=== PATIENT | female | born 1945 | race Caucasian/White ===

== ENCOUNTER 2021-06-30 18:32 | Observation (INO) | payer OTHER ==
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
[2021-06-30] MEDS ORDERED: CEFTRIAXONE 1,000 MG in NA CHLORIDE 0.9% 50 ML IVPB SCH (21:00)
--- NOTE | 2021-06-30 21:29 | RAD REPORT ---
EXAM DESCRIPTION: Franc Cleaning (2 Views)06/30/2021 9:23 pm CLINICAL HISTORY: fever COMPARISON: 2018 FINDINGS: The lungs appear clear of acute infiltrate. The heart is normal size IMPRESSION: No acute abnormalities displayed
[2021-06-30 22:02] LABS: Absolute Lymphocytes (CBC) 0.4 K/uL (0.7-4.9); Hematocrit 40.1 % (36.0-45.0); Lymphocytes % 6.7 % (15.3-44.8); MPV 8.8 fL (7.6-11.3); RBC Red Blood Cell Count 4.69 M/uL (3.86-4.86)
[2021-06-30 22:24] LABS: Albumin 3.8 g/dL (3.4-5.0); Bilirubin Total 0.6 mg/dL (0.2-1.0); Magnesium 2.1 mg/dL (1.8-2.4); Potassium 3.4 mmol/L (3.5-5.1)
[2021-06-30 23:28] LABS: Blood Morphology Comment NOT SEEN (NOT SEEN); Platelet Estimate ADEQ
[2021-06-30 23:36] LABS: Urine Appearance Clear (Clear); Urine Bilirubin Negative (Negative); Urine Blood Negative (Negative); Urine Color Yellow (Yellow); Urine Glucose Negative (Negative); Urine Protein Negative (Negative); Urine Specific Gravity <=1.005 (1.005-1.030); Urine Urobilinogen 0.2 mg/dL (0.2-1.0); Urine pH 5.5 (5.0-7.0)
[2021-06-30 23:43] LABS: Urine Microscopic Reflex ORDER UMIC
[2021-07-01 00:09] LABS: Urine Bacteria <20 /HPF (<20); Urine RBC <5 /HPF (NONE SEEN); Urine Urothelial Cells <5 /HPF (NONE SEEN)
[2021-07-01] MEDS: NA CHLORIDE 0.9% 1,000 ML IV SCH ×2 (02:30→06:19)
[2021-07-01 05:58] VITALS: BMI 33.3
[2021-07-01] MEDS ORDERED: carvediloL 3.125 MG TAB PO SCH (06:00)
[2021-07-01] MEDS ORDERED: POTASSIUM CL SA 10 MEQ TAB PO ONE (07:16)
--- NOTE | 2021-07-01 07:36 | HP ---
Date of Admission: 06/30/2021 Chief Complaint: Fever and feeling weak. History Of Present Illness: Ms. Coats is a pleasant 76-year-old female patient, who worked outside in this hot weather for approximately hour or so and she came back inside the house and reported that she was not feeling good after that. She started to have fever, chills, body ache. Her maximum tem perature at home was 102 degrees Fahrenheit. She took 2 different doses of Tylenol 500 mg about 4 ho urs apart. Has felt very tired and weak today and has not had a good appetite today. Denies any cou gh, chest congestion, sore throat. Has had some nausea, but no vomiting. She did home COVID test to day, which was negative and then subsequently called office, requested appointment and was seen today at the office and after I evaluated her, decision was made to admit her to the hospital. She denies any diarrhea or constipation. No urinary complaints. Allergies: TO CLINDAMYCIN CAUSING RASH. Medications: Carvedilol 3.125 mg 2 times a day, dicyclomine 20 mg as needed, hydroxychloroquine 200 mg 2 times a day, levothyroxine 200 mcg daily, Xiidra, Apriso, omeprazole 40 mg daily, pramipexole 0. 5 mg 3 times a day, and rosuvastatin 5 mg daily. Review of Systems: Constitutional: As mentioned above. GI: As mentioned above. All other systems reviewed and negative. Past Medical History: Significant for restless leg syndrome, hypertension, hypothyroidism, impaired fasting glucose, hyperlipidemia, aortic regurgitation, gastroesophageal reflux disease, diverticulosi s, depression. Past Surgical History: Significant for tonsillectomy, thyroidectomy, hysterectomy, carpal tunnel jasson susie, and knee surgery. 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 Family History: Significant for father had some type of skin cancer and kidney disorder. Mother had diabetes and hepatitis C and sister had lung cancer. Social History: Negative for smoking. Use of alcohol occasionally. Immunization History: Her COVID-19 vaccine was on March 31, 2020 and April 28, 2020, and this was Patti starks, and her first booster was January 01, 2021, and it was [employer]. Physical Examination: vital Signs: When I saw her; manual blood pressure 108/70, pulse 96, temperature 99.2, respiratory r ate 18. Weight 200.2 pounds, height 65 inches. General: The patient appears weaker than normal. Appears very tired, not in any distress. Awake, a lert, answering questions appropriately. HEENT: Head atraumatic, normocephalic. Conjunctivae nonerythematous. Sclerae white. Mouth, no thr ush or edema noted. Ears/Nose, no mass, lesion, discharge noted. Neck: Supple. No JVD, lymph nodes, bruit, thyromegaly noted. Lungs: Bilateral good equal air entry. Clear to auscultation. No rhonchi. No rales. Heart: Normal heart sounds, no murmur or gallop. Abdomen: Soft, bowel sounds normal. No guarding, rigidity, tenderness, mass, hepatosplenomegaly, dis tention, or bruit noted. Extremities: No leg edema. No calf tenderness. Skin: No rash, ulcer, cellulitis. Lymphatics: No lymph node enlargement in neck, supraclavicular, infraclavicular region. Neuro: No focal neurological deficit. Chest: Unremarkable. External Genitalia: Deferred. Rectal: Deferred. Laboratory Data: COVID-19 test negative. Chest x-ray; no acute cardiopulmonary changes. Urinalysis ; 1+ leukocyte esterase, 5-10 WBC. White count 5.5, hemoglobin 13.7, platelets 152. Sodium 139, pot assium 3.4, chloride 103, bicarb 28, BUN 19, creatinine 0.84, glucose 95. Liver function tests unrem arkable except AST 47. Lactic acid 0.8. Procalcitonin 0.38. Impression: 1.Fever. 2.Volume depletion. 3.Hypokalemia. 4.Urinary tract infection. 5.Rule out sepsis. 6.Hypertension. 7.Hyperlipidemia. 8.Restless leg syndrome. 9.Hypothyroidism, postsurgical. 10.Gastroesophageal reflux disease. 11.Diverticulosis. 12.Depression. 13.Impaired fasting glucose. Plan: Admit the patient to hospital for further evaluation and management of this problem. The [facility] is appropriate for inpatient and is expected to spend 2 midnights in hospital. We will go ahead and get urine culture and blood culture done after sample is collected. We will start the patient on ceftriaxone 1 g IV every 12 hours. IV fluid will be given per order. We will continue home medicat ions per order and I will see her tomorrow morning for followup. We will give DVT prophylaxis using Lovenox as per order. Details and plan of treatment discussed with the patient and the patient's hus band who was with her at office. KALYN/YESSY Voice ID: [id number]
[2021-07-01 08:35] VITALS: BP 139/75; TEMP 98
[2021-07-01] MEDS ORDERED: ENOXAPARIN 40 MG/0.4 ML SQ SCH (09:00)
--- NOTE | 2021-07-02 23:19 | DS ---
Date of Discharge: 07/01/2021 Disposition: Discharged to go home. Physical Examination: HEENT: Unremarkable. Lungs: Clear to auscultation. Heart: Heart sounds normal. Abdomen: Soft, bowel sounds normal. No guarding, rigidity, tenderness, or distention. Extremities: No leg edema. Discharge Medications And Instructions: 1.Continue all prior home medications. 2.Cipro 500 mg 2 times a day for 1 week. 3.Follow up at my office next week on Monday, which is 07/07/2021, call office for appointment. 4.Keep yourself well hydrated. 5.Avoid excessive heat exposure. Final Diagnoses: 1.Fever. 2.Volume depletion. 3.Urinary tract infection. 4.Hypertension. 5.Hyperlipidemia. 6.Restless legs syndrome. 7.Hypokalemia. 8.Heat exhaustion. Hospital Course: A 76-year-old pleasant female patient who came into office yesterday. After workin g in the yard, she started to have fever, chills, feeling very weak, loss of appetite, feeling very t ired and she came into office. After she was evaluated, she was admitted to the hospital. At office , her blood pressure was on low side. She was started on IV fluid. Blood culture, urine culture was done. Urinalysis was done and she was started on empiric antibiotic, ceftriaxone. This morning whe n I saw her, she was feeling much better. She was looking a lot better. No new complaints or proble ms reported overnight and the patient was discharged to go home in stable condition. Urine culture a nd blood culture results are pending. I will follow up on those on outpatient basis and if we need t o change any antibiotic, we will consider to do so. All those details were discussed with the patien t. The patient was advised not to have any kind of excessive sunlight exposure, to avoid any possibi lity of heat exhaustion. It is possible that yesterday's presentation was combination of heat exhaus tion as well as urinary tract infection. In any case, I have strongly encouraged her to keep her so well hydrated and avoid yard work or excessive sunlight exposure. KALYN/MODL Voice ID: [id number] Report ID: [id number]
== END 2021-07-01 08:30 | disposition home or self-care (01) ==
LOC: ERHOLD 18:32 → INTOOBSV 18:32 → 2ND 19:48
PROVIDERS: ADMIT Internal Medicine; ATTEND Internal Medicine
DX: N39.0 Urinary tract infection, site not specified (principal); E86.9 Volume depletion, unspecified; T67.5XXA Heat exhaustion, unspecified, initial encounter; I10 Essential (primary) hypertension; E78.5 Hyperlipidemia, unspecified; G25.81 Restless legs syndrome; E87.6 Hypokalemia; R73.01 Impaired fasting glucose; E89.0 Postprocedural hypothyroidism; K21.9 Gastro-esophageal reflux disease without esophagitis; K57.90 Diverticulosis of intestine, part unspecified, without perforation or abscess without bleeding; F32.A Depression, unspecified; I35.1 Nonrheumatic aortic (valve) insufficiency; Z20.822 Contact with and (suspected) exposure to COVID-19; Z79.899 Other long term (current) drug therapy; Z88.1 Allergy status to other antibiotic agents; Z85.820 Personal history of malignant melanoma of skin; Z90.710 Acquired absence of both cervix and uterus; Z83.3 Family history of diabetes mellitus; Z80.1 Family history of malignant neoplasm of trachea, bronchus and lung; Z80.8 Family history of malignant neoplasm of other organs or systems; Z84.1 Family history of disorders of kidney and ureter
CPT/HCPCS: 87040 ×2; 87088; 85025; 87086; 36415; 83735; 82947; 83605; 80053; 84145; 71046; U0003; J7030 ×2; G0379; G0378 ×2; 81003; 81015